=== PATIENT | male | born 1990 | race Caucasian/White ===

== ENCOUNTER 2016-11-13 19:20 | Emergency (ER) | payer BC ==
[2016-11-13 19:32] VITALS: BP 142/85
--- NOTE | 2016-11-13 19:32 | EDM.PDOC ---
ED HPI Trauma - General Chief Complaint: Upper Extremity Injury/Pain Stated Complaint: HURT RIGHT THUMB Time Seen by Provider: 11/13/16 19:31 - History of Present Illness INITIAL COMMENTS - FREE TEXT/NARRATIVE: 25-year-old male presents emergency room after injuring his right thumb. This occurred about an hour ago. The patient was working with 2 wrenches and something slipped and he got his thumb caught between both wrenches. He has pain in the thumb and does not want to move it. Allergies/ADRs: Allergies Penicillins Allergy (Unknown, Verified 11/13/16 19:32) Cannot Remember Home Medications: Ambulatory Orders Acetaminophen/HYDROcodone [[place] 325-5 MG] 1 - 2 tab PO Q6H PRN #12 tablet 11/13 Past Medical History - Past Health History Medical/Surgical History: Denies Medical/Surgical History Gastrointestinal History: Reports: GERD Psychiatric History: Reports: ADHD, Addiction (as per the HPI) Hematologic History: Reports: Idiopathic thrombocytopenia - Past Surgical History Musculoskeletal Surgical History: Reports: ORIF (right forearm) Social & Family History - Tobacco Use Smoking Status *Q: Current Every Day Smoker Years of Tobacco use: 11 Packs/Tins Daily: 0.5 Second Hand Smoke Exposure: Yes - Caffeine Use Caffeine Use: Reports: Energy drinks, Soda - Alcohol Use Days Per Week of Alcohol Use: 2 Number of Drinks Per Day: 3 Total Drinks Per Week: 6 - Recreational Drug Use Recreational Drug Use: Yes Drug Use in Last 12 Months: Yes Recreational Drug Type: Reports: Amphetamines (Speed), Cocaine, Ecstasy, Fentanyl, Heroin, Methamphetamine, Oxycodone, PCP (Manny Dust), Ritalin Recreational Drug Use Frequency: Weekly - Living Situation & Occupation Living situation: Reports: other, single Occupation: employed ([employer]) Review of Systems - Review of Systems Review Of Systems: See Below Constitutional: Reports: no symptoms Respiratory: Reports: no symptoms Cardiovascular: Reports: no symptoms GI/Abdominal: Reports: No symptoms Trauma Exam - Physical Exam Exam: See Below Exam Limited By: No limitations General Appearance: Reports: alert, no apparent distress Respiratory Exam: Reports: no respiratory distress, lungs clear, normal breath sounds Cardiovascular: Reports: regular rate, rhythm, no edema, no murmur Extremities: Reports: other (Patient has a swollen right thumb his discomfort seems to be distal to the metacarpophalangeal joint. He has swelling underneath the fingernail. Neuro vascular status appears to be intact) Course - Vital Signs Last Recorded V/S: Last Vital Signs Temp 37.1 C 11/13/16 19:28 Pulse 75 11/13/16 19:28 Resp 16 11/13/16 19:28 BP 142/85 H 11/13/16 19:28 Pulse Ox 98 11/13/16 19:28 - Orders/Labs/Meds Orders: Active Orders 24 hr Category Date Time Status Fingers Thumb Rt F5 [CR] Stat Exams 11/13/16 19:36 Taken - Re-Assessments/Exams Free Text/Narrative Re-Assessment/Exam: 11/13/16 20:23 x-ray examination of his thumb shows a normal metacarpal phalangeal joint the proximal phalanx appears intact the distal phalanx I cannot exclude a subtle nondisplaced fracture. With further examination the patient is demonstrating intact flexion and extension of the interphalangeal joint and metacarpophalangeal joint is limited by pain distally in is difficult to fully assess. Patient will need close clinical followup he will be splinted in hyperextension digit splint immobilizing the interphalangeal joint. Case discussed with Dr. Chew who will see the patient in the morning. Departure - Departure Time of Disposition: 20:33 Disposition: Home, Self-Care 01 Clinical Impression: Injury of right thumb Prescriptions: Acetaminophen/HYDROcodone [[place] 325-5 MG] 1 - 2 tab PO Q6H PRN #12 tablet PRN Reason: Pain Referrals: Capo Chew MD [Physician] - Additional Instructions: Return to emergency room if any questions or problems. Keep your arm elevated ice your thumb frequently this evening and for the next 48 hours. Use ibuprofen as needed for pain take with meals. He been given hydrocodone, this is stronger pain medication use one or 2 every 6 hours only if needed. Allow 12 hours after using this medication before driving or returning to work. First thing tomorrow morning call Dr. Chew's office for followup tomorrow morning. - My Orders Last 24 Hours: My Active Orders 11/13/16 19:36 Fingers Thumb Rt F5 [CR] Stat - Assessment/Plan Last 24 Hours: My Active Orders 11/13/16 19:36 Fingers Thumb Rt F5 [CR] Stat
--- NOTE | 2016-11-14 11:31 | CR ---
Right thumb: Four views of the right thumb were obtained. Fracture identified within the distal phalanx. Several fracture lines are seen. Alignment appears close to anatomic. Soft tissue swelling is identified. No additional abnormality is seen. Impression: 1. Fracture within the distal phalanx of the thumb as described above. 2. Other finding as noted above. Diagnostic code #3
== END 2016-11-13 20:45 | disposition home or self-care (01) ==
LOC: JD.ED 19:20
DX: S69.91XA Unspecified injury of right wrist, hand and finger(s), initial encounter (principal); K21.9 Gastro-esophageal reflux disease without esophagitis; F17.210 Nicotine dependence, cigarettes, uncomplicated; W23.0XXA Caught, crushed, jammed, or pinched between moving objects, initial encounter; Z88.0 Allergy status to penicillin
CPT/HCPCS: 29130; 73140-26-F5; 73140-F5; 99283

== ENCOUNTER 2018-01-15 19:56 | Emergency (ER) | payer BC ==
[2018-01-15 20:03] VITALS: BP 137/90
--- NOTE | 2018-01-15 20:39 | EDM.PDOC ---
ED HPI GENERAL MEDICAL PROBLEM - General Chief Complaint: ENT Problem Stated Complaint: TOOTHACHE Time Seen by Provider: 01/15/18 20:10 Source of Information: Reports: Patient History Limitations: Reports: No Limitations - History of Present Illness INITIAL COMMENTS - FREE TEXT/NARRATIVE: This is a 27-year-old male. He comes today for the last week he has been having pain in his left upper back molar. He states it's fractured any as constant pain there but he denies any drainage. The pain seems to go into the TMJ area but not into his ear on the left. He denies any fever or chills he denies any other acute symptoms. He states he has a dentist appointment on Thursday. 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 Left Upper Tooth/Teeth Pain Score (Numeric/FACES): 9 - Related Data Allergies Allergy/AdvReac Type Severity Reaction Status Date / Time Penicillins Allergy Unknown Cannot Verified 01/15/18 20:03 Remember Home Meds: Home Meds Acetaminophen/HYDROcodone [[place] 325-5 MG] 1 - 2 tab PO Q6H PRN #12 tablet 11/13 [Rx] Clindamycin HCl [Cleocin] 300 mg PO Q8H #15 cap 01/15/18 [Rx] traMADol HCl [Tramadol HCl] 50 mg PO Q8H PRN #12 tablet 01/15/18 [Rx] Past Medical History - Past Health History Medical/Surgical History: Denies Medical/Surgical History Gastrointestinal History: Reports: GERD Psychiatric History: Reports: ADHD, Addiction Hematologic History: Reports: Idiopathic Thrombocytopenia - Past Surgical History Musculoskeletal Surgical History: Reports: ORIF Social & Family History - Tobacco Use Smoking Status *Q: Current Every Day Smoker Years of Tobacco use: 10 Packs/Tins Daily: 0.3 Used Tobacco, but Quit: No Second Hand Smoke Exposure: Yes - Caffeine Use Caffeine Use: Reports: Coffee - Alcohol Use Days Per Week of Alcohol Use: 2 Number of Drinks Per Day: 3 Total Drinks Per Week: 6 - Recreational Drug Use Recreational Drug Use: No Drug Use in Last 12 Months: Yes Recreational Drug Type: Reports: Amphetamines (Speed), Cocaine, Ecstasy, Fentanyl, Heroin, Methamphetamine, Oxycodone, PCP (Manny Dust), Ritalin Recreational Drug Use Frequency: Weekly - Living Situation & Occupation Living situation: Reports: Other, Single Occupation: Employed ED ROS ENT - Review of Systems Review Of Systems: See Below Constitutional: Denies: Fever, Chills HEENT: Reports: Other (As per history of present illness) Respiratory: Reports: No Symptoms Cardiovascular: Reports: No Symptoms Endocrine: Reports: No Symptoms GI/Abdominal: Reports: No Symptoms : Reports: No Symptoms Musculoskeletal: Reports: No Symptoms Skin: Reports: No Symptoms Neurological: Reports: No Symptoms Psychiatric: Reports: No Symptoms Hematologic/Lymphatic: Reports: No Symptoms ED EXAM, ENT - Physical Exam Exam: See Below Exam Limited By: No Limitations General Appearance: Alert, WD/WN, No Apparent Distress Eye Exam: Bilateral Eye: Normal Inspection Ears: Normal External Exam, Normal Canal, Normal TMs Nose: Normal Inspection Mouth/Throat: Normal Inspection, Other (His left upper back molar does have a slight fracture to it there is no drainage there is no gum swelling there is no soft tissue swelling on the left side of the jaw. No other acute findings.) Head: Normocephalic Neck: Supple. No: Lymphadenopathy (L), Lymphadenopathy (R) Respiratory/Chest: No Respiratory Distress Back: Full Range of Motion Extremities: Normal Inspection, Normal Range of Motion Neurological: Alert, Oriented Psychiatric: Normal Affect, Normal Mood Skin: Warm, Dry Course - Vital Signs Last Recorded V/S: Last Vital Signs Temp 97.4 F 01/15/18 20:00 Pulse 85 01/15/18 20:00 Resp 18 01/15/18 20:00 BP 137/90 01/15/18 20:00 Pulse Ox 100 01/15/18 20:00 Departure - Departure Time of Disposition: 20:35 Disposition: Home, Self-Care 01 Condition: Good Clinical Impression: Pain, dental, Dental infection Tooth fracture Qualifiers: Encounter type: initial encounter Fracture type: closed Qualified Code(s): S02.5XXA - Fracture of tooth (traumatic), initial encounter for closed fracture - Discharge Information Prescriptions: Clindamycin HCl [Cleocin] 300 mg PO Q8H #15 cap traMADol HCl [Tramadol HCl] 50 mg PO Q8H PRN #12 tablet PRN Reason: Pain Referrals: Armando Oates MD [Primary Care Provider] - Additional Instructions: Get the antibiotics and start taking them faithfully so when you see the dentist on Thursday he can repair the tooth without worrying about infection, take the medicine as needed for pain, get some Cap-It in place over the fracture site to hide the nerves so it's not so painful, recheck with your family doctor as needed and return to the ER if needed.
== END 2018-01-15 20:50 | disposition home or self-care (01) ==
LOC: JD.ED 19:56
DX: K03.81 Cracked tooth (principal); K04.7 Periapical abscess without sinus; F17.210 Nicotine dependence, cigarettes, uncomplicated; Z88.0 Allergy status to penicillin
CPT/HCPCS: 99283